=== PATIENT | male | born 1945 | race Caucasian/White ===

== ENCOUNTER → 2017-07-19 | Outpatient (CLI) | payer OTHER ==
[~2017-07-19] MED LIST: AMB5 PO; CLC100 PO; CYCL10TA6 PO; ONDA4TAB65 PO; OXYC-57 PO; POLY335019 PO; PRD10 PO
[2017-07-19 13:15] LABS: BASO % 0.4 %; BASO ABS # 0.02 K/uL (0-0.2); COMPLETE YES; EOS % 6.2 %; HEMATOCRIT 44.1 % (42-52); IG% 0.2 %; LYMPH % 21.5 %; LYMPH ABS # 1.12 K/uL (1.2-3.4); MEAN CELL VOLUME 91.9 fL (80-100); MEAN CORPUSCULAR HEMOGLOBIN 32.1 pg (25-34); MEAN CORPUSCULAR HGB CONC 34.9 g/dl (32-36); MEAN PLATELET VOLUME 10.6 fL (7.4-10.4); MONO % 12.9 %; NEUT % 58.8 %; PLATELET COUNT 249 K/uL (130-400)
[2017-07-19 14:35] LABS: ALT/SGPT 27 U/L (12-78); AST/SGOT 18 U/L (15-37); BLOOD UREA NITROGEN 13 mg/dl (7-18); BUN/CREATININE RATIO 13.7 (10-20); CARBON DIOXIDE 26 mmol/L (21-32); CHLORIDE 107 mmol/L (98-107); CHOLESTEROL 215 mg/dl (0-200); CREATININE 0.98 mg/dl (0.60-1.40); GLUCOSE 97 mg/dl (70-99); POTASSIUM 4.1 mmol/L (3.5-5.1); SODIUM 140 mmol/L (136-145)
[2017-07-19 14:37] LABS: ALB/GLOB RATIO 1.1 (0.9-2); ALKALINE PHOSPHATASE 91 U/L (45-117); CHOLESTEROL/HDL RATIO 4.2; HDL CHOLESTEROL 51 mg/dl; LDL CHOLESTEROL CALCULATED 149 mg/dl; TRIGLYCERIDES 77 mg/dl (0-150); VERY LOW DENSITY LIPOPROT CALC 15 mg/dl
== END | disposition home or self-care (01) ==
LOC: C.LABSPEC 12:34
PROVIDERS: ATTEND Family Medicine
DX: Z00.00 Encounter for general adult medical examination without abnormal findings (principal)

== ENCOUNTER 2025-04-03 10:03 | Observation (INO) ==
--- NOTE | 2025-01-03 15:58 | PAT Medication Instructions ---
Medication Instructions Date of Service January 03, 2025 Home Medications meloxicam 7.5 mg tablet 7.5 mg PO UD PRN Pain ASK your surgeon for instructions meloxicam 7.5 mg tablet 7.5 mg PO UD PRN Pain MORNING OF SURGERY: NOTHING TO EAT OR DRINK AFTER MIDNIGHT Other Notes If you have any questions please call us at [phone] or [phone] or [phone] or [phone]
--- NOTE | 2025-01-09 11:53 | Anesthesiology Consultation ---
Date of Service January 09, 2025 Assessment & Plan (1) Encounter for pre-operative examination: Chart Review Chart Review: Acceptable Risk for Surgery (pending surgeon ordered PCP clearance ) and Patient seen in Pre Admission Testing - Awaiting PCP clearance 01/22/25 (Dr. Gaines) Per PAT appt on 01/09/25, no recent illness/disease exposures, illness related symptoms, or recent illness/disease positive tests. Will leave to surgeon's discretion if preop Covid testing needed Teaching & Discussion Pre-Anesthesia Teaching/Discussion Notes: Instructed NPO after midnight before surgery,except medications with 15 cc of water. Medication instructions provided according to the PAT guidelines. History Surgery Operation Date: 01/31/25 07:45 Proposed Procedures p L4-S1 Decompression and Fusion, Spinal Cord Monitoring - Andrez Mackenzie DO Height/Weight Height: 5 ft 6 in Weight: 81.5 kg Allergies Allergy/AdvReac Type Severity Reaction Status Date / Time No Known Allergies Allergy Verified 01/03/25 15:01 Medications Home Medications Medication Instructions Recorded Confirmed Last Taken meloxicam 7.5 mg tablet 7.5 mg PO UD PRN Pain 01/03/25 01/03/25 Unknown Past Medical History Medical History Borderline high cholesterol History of anxiety History of COVID-19 Covid PNA 2019 hospitalization - symptoms resolved History of depression History of kidney stones History of Lyme disease Treated with IV antibiotic (2014) Spinal stenosis Exercise / Class Metabolic Activity II 4-5 Yardwork/Stairs/Walk up hill (one flight of stairs- no chest pain or SOB ) Past Family History Family History Daughter Family history of reaction to anesthesia n/v and slow to come out of. Other Cancer Heart disease Denies family history of Hearing loss No family history of bleeding disorder Allergies Hypertension Asthma Past Surgical History Surgical History History of colonoscopy History of knee surgery History of lithotripsy Multiple History of neck surgery C-spine surgery x2- no hardware as far as daughter is aware History of sinus surgery History of tonsillectomy Per records, daughter not sure History of urologic surgery Multiple, r/t kidney stones Past Anesthesia History No Hx of Anesthesia Complications (with exception to T&A as child - unknown specifics - "almost lost him", no issues with subsequent anesthesia- possibly related to ether per patient ) and No Family Hx of Anesthesia Complications (with exception to daughter PONV and slow wake (groggy- no reintubation or ICU stay)) History of PONV No Hx of PONV and No Hx of Motion Sickness Social History Smoking Status: Former smoker Do You Dip or Chew Tobacco: Yes (<1 can daily /advised) Smoking End Date: 30+ yr ago Hx Alcohol Use: No alcohol intake frequency: other Alcohol Intake Frequency Comment: infrequent/seasonal. Hx Substance Use: No substance use type: does not use Review of Systems - Coughing x 1-2 days- no issues at PAT appt on 01/09/25 - Hx of snoring- hx of sleep study- results inconclusive/could not complete study Patient denies chest pain, shortness of breath, dyspnea on exertion, reflux, wheezing, palpitations. No hx of seizures, stroke, DC. No hx of blood clots or blood transfusions Physical Exam Vital Signs VITALS BP 157/93 P 54 TEMP 97.7 SP02 98% (Physical Exam completed by Dr Echavarria) Constitutional no acute distress ENMT Mallampati Class: I Two front teeth capped Missing side teeth/molars Neck + limited neck extension Musculoskeletal Spine: no pain with cervical ROM Extremities: extremities normal to inspection Psychiatric Orientation: alert Lab Results Anesthesia Preop Results Results Anesthesia Widget: WBC 7.59 K/ul (4.8-10.8) 01/09/25 Hgb 15.2 g/dl (14.0-18.0) 01/09/25 Hct 44.9 % (42.0-52.0) 01/09/25 Plt 240 K/uL (130-400) 01/09/25 Na 140 mmol/L (136-145) 01/09/25 K 4.4 mmol/L (3.5-5.1) 01/09/25 Cl 108 mmol/L (98-107) H 01/09/25 CO2 26 mmol/L (21-32) 01/09/25 BUN 24 mg/dl (6-23) H 01/09/25 Creat 0.87 mg/dl (0.6-1.4) 01/09/25 Glucose Level 92 mg/dl (70-99(Fasting)) 01/09/25 PT 10.3 Seconds (9.0-12.0) 01/09/25 PTT 28 Seconds (21-31) 01/09/25 INR 0.9 (0.9-1.1) 01/09/25 Urine Color Yellow 01/09/25 Urine Appearance Clear (Clear) 01/09/25 Urine pH 7.5 (4.5-7.5) 01/09/25 Urine Specific [place] 1.015 (1.000-1.030) 01/09/25 Urine Protein Negative (Negative) 01/09/25 Urine Glucose (UA) Negative (Negative) 01/09/25 Urine Ketones Negative (Negative) 01/09/25 Urine Blood Negative (Negative) 01/09/25 Urine Nitrite Negative (Negative) 01/09/25 Urine Bilirubin Negative (Negative) 01/09/25 Urine Urobilinogen Negative (Negative) 01/09/25 Urine Leukocyte Esterase Negative (Negative) 01/09/25 Blood Type A Positive 01/09/25 Antibody Screen NEGATIVE 01/09/25 Testing Electrocardiogram Date: 01/09/25 Findings: + SB @ (54bpm) RBBB When compared to EKG from December 31, 2022- no significant change was found per cardio Chest X-Ray Date: 01/09/25 Findings: + NAD FINDINGS: Heart size and pulmonary vasculature are normal. No effusion or consolidation. Stable mildly hyperexpanded lungs.
[2025-04-03 10:27] LABS: Hematocrit (blood only) 47.1 % (42.0-52.0); Hemoglobin 16.0 g/dl (14.0-18.0); Immature Granulocytes # (auto) 0.01 K/uL (0.01-0.20); Immature Granulocytes % (auto) 0.2 %; Mean Corpuscular Hemoglobin 31.4 pg (25.0-34.0); Mean Corpuscular Volume 92.4 fL (80.0-100.0); Platelet Count 237 K/uL (130-400); RDW Standard Deviation 44.1 fL (36.4-46.3); Red Blood Count 5.10 M/uL (4.70-6.10); White Blood Count 5.45 K/ul (4.8-10.8)
[2025-04-03] MEDS: ACETAMINOPHEN 500 MG TAB PO SCH (10:37)
[2025-04-03] MEDS: CeleBREX 200 MG CAP PO SCH (10:38)
[2025-04-03] MEDS: GABAPENTIN 300 MG CAP PO SCH (10:38)
[2025-04-03] MEDS: LR 60ML/HR IV SCH (10:38)
[2025-04-03 10:45] LABS: Anion Gap 5.0 (3-11); Blood Urea Nitrogen 21.0 mg/dl (6-23); Calcium 9.6 mg/dl (8.6-10.3); Carbon Dioxide 28.0 mmol/L (21-32); Chloride 108.0 mmol/L (98-107); Creatinine Clr Calc Pharmacy 58.6 ml/min; Glucose 112.0 mg/dl (70-99(Fasting)); Potassium 4.4 mmol/L (3.5-5.1); Sodium 141.0 mmol/L (136-145)
[2025-04-03] MEDS ORDERED: PROPOFOL IV EMULSION 10 MG/ML 20 ML VIAL IV ONE ×2 (10:52→13:04)
[2025-04-03] MEDS ORDERED: ROCURONIUM BROMIDE 10 MG/ML 5 ML VIAL IV ONE ×2 (10:52→13:21)
[2025-04-03] MEDS ORDERED: LIDOCAINE 2% 2 ML VIAL/AMP(20MG/ML) INFIL ONE (10:52)
[2025-04-03] MEDS ORDERED: KETAMINE HCL 10MG/ML SYR ONE (10:53)
[2025-04-03 10:59] LABS: INR 0.9 (0.9-1.1); Partial Thromboplastin Time 28 Seconds (21-31); Prothrombin Time 10.3 Seconds (9.0-12.0)
--- NOTE | 2025-04-03 12:19 | History & Physical Bridge Note ---
Date of Service April 03, 2025 History & Physical Bridge Note I have examined the patient, reviewed the History & Physical and in the interval since the performance of the History & Physical I have noted the following changes of clinical significance: no changes noted
--- NOTE | 2025-04-03 12:20 | History & Physical Report ---
Date of Service April 03, 2025 Assessment & Plan (1) Lumbosacral radiculopathy: Plan: L4-S1 decompression and fusion History of Present Illness Chief Complaint: Back and bilateral leg pain Primary Care Provider: Galileo Gaines DO This is a 80-year-old male who presents with chronic persistent back and leg pain after failing course of nonoperative care is here for surgical intervention. Allergies Allergy/AdvReac Type Severity Reaction Status Date / Time No Known Allergies Allergy Verified 03/27/25 08:02 Home Medications Medication Instructions Recorded Confirmed Type meloxicam 7.5 mg tablet 7.5 mg PO UD PRN Pain 01/03/25 04/03/25 History aspirin 81 mg tablet,delayed 81 mg PO QAM 03/27/25 04/03/25 History release omega-3 fatty acids 1,200 mg PO QAM 03/27/25 04/03/25 History Past Med/Surg History Problem List Lumbosacral radiculopathy Positional vertigo of left ear (Acute) Medical History History of postoperative nausea and vomiting age 9 with ether for t&a. History of anesthesia reaction age 9 with t&a surgery "quit breathing" - specific unknown- no issues with subsequent surgeries/anesthesia (possibly related to ether per patient) History of COVID-19 Covid PNA 2019 hospitalization - symptoms resolved History of depression History of anxiety History of kidney stones History of Lyme disease Treated with IV antibiotic (2014) Spinal stenosis Borderline high cholesterol Surgical History History of tonsillectomy and adenoidectomy History of colonoscopy History of sinus surgery History of knee surgery History of neck surgery C-spine surgery x2- no hardware per pt - rom "pretty good" History of urologic surgery Multiple, r/t kidney stones History of lithotripsy Multiple Family History Daughter Family history of reaction to anesthesia n/v and slow to come out of. Other Cancer Heart disease Denies family history of Hearing loss No family history of bleeding disorder Allergies Hypertension Asthma Social History (Updated 07/26/20 @ 11:39 by Evelyn Kenny RN) Smoking Status: Former smoker Tobacco Type: Smokeless Tobacco (Dip or Chew) Smoking End Date: hx cigarettes & occ cigar , quit 30 yr ago; Second Hand Exposure: Yes (whole family at one point smoked); Do You Dip or Chew Tobacco: Yes (chew daily /advised); Hx Alcohol Use: No Hx Substance Use: No Preferred Language: Thai Communication Ability: Effective Communication Ability Comment: phone call with daughter Selene [employer] Collect[employer] Required: No Beliefs That Will Affect Care: None marital status: Current Living Situation: Spouse current occupational status: retired Feels Safe at Home: Yes Assistive Devices: Glasses Physical Exam Physical Exam: Patient is alert and oriented Heart regular rhythm Lungs clear Results & Data Results & Data Vital Signs (Past 12 Hours) Vital Signs Temp Pulse Resp BP Pulse Ox O2 Del Method 04/03/25 10:23 36.9 C 55 L 20 181/89 H 97 Room Air
[2025-04-03] MEDS ORDERED: HYDROmorphone INJ 2 MG/ML SYR/VIAL ONE (12:29)
[2025-04-03] MEDS ORDERED: ONDANSETRON INJ 2 MG/ML 2 ML VIAL IV PRN ×2 (12:35→17:31)
[2025-04-03] MEDS ORDERED: ATROPINE SULFATE 0.1 MG/ML 10ML SYR IV PRN (12:35)
[2025-04-03] MEDS ORDERED: DEXAMETHASONE SOD INJ 4 MG/ML VIAL ONE (13:14)
[2025-04-03] MEDS ORDERED: ONDANSETRON INJ 2 MG/ML 2 ML VIAL ONE (14:14)
[2025-04-03] MEDS: BUPIVACAINE/EPINEPHRINE 0.25% 1:200,000 30 ML VIAL ONE (14:31)
[2025-04-03] MEDS: SURGICEL ABSORB HEMOSTAT 2IN X 14IN TOP ONE (14:33)
[2025-04-03] MEDS: ceFAZolin 330 MG/ML 1 GM VIAL ONE (14:33)
[2025-04-03] MEDS: FLOSEAL HEMOSTATIC MATRIX 10ML TOP ONE (15:06)
--- NOTE | 2025-04-03 15:16 | Operative Report ---
Post Operative Report Pre & Post Diagnosis Operation Date: 04/03/25 11:55 Pre-Op Diagnosis: #1 multilevel lumbosacral spondylosis with radiculopathy #2 lumbar spinal stenosis Post-Op Diagnosis: Same I identified the patient and participated in the time-out.: Yes Procedure Operation Date: 04/03/25 11:55 Actual Procedures #1 lumbar decompression with bilateral medial facetectomies and foraminotomies L3-L4, L4-L5 and L5-S1. #2 posterior spinal fusion L3-S1. #3 placed posterior segmental instrumentation L3-S1 using Varela. #4 interbody fusion L4-L5 L5-S1. #5 placement of Spira 13 x 26 mm at L4-L5 and 11 x 26 mm at L5-S1. #6 placement locally harvested morselized autograft and posterior gutters. #7 placement of Proteus, with Koros in the posterior lateral gutters and os design interbody space. #8 application of versa wrap of the exposed dura. Surgeon Andrez Mackenzie, Regional Maintenance Manager Kristy Rendon Estimated Blood Loss 450 Findings Consistent with Post-Op Diagnosis Specimens None Indications This is a 80-year-old male presents publish diagnosis of failed course of nonoperative care is here for surgical invention. Description of Procedure Patient met with identified informed consent obtained. Patient was then taken to the operative suite underwent intubation placed in a prone position on the Anthony table top of the Tommie frame. All bony prominences well-padded eyes inspected to ensure no external pressure placed upon them. This point the lumbar spine was prepped and draped in normal sterile fashion. Sharp dissection with the assistance of Bovie cautery from down to and exposing the lamina and transverse processes of L3-4 L5 and the sacral ala bilaterally. From caudal to cephalad fashion complete laminectomy of L5 was performed including bilateral medial facetectomies and foraminotomies addressing severe neural compression. This was followed by complete laminectomy of L4 with bilateral medial facetectomies and foraminotomies addressing severe neural compression. I did perform a medial facetectomy bilaterally at L4 3 L4 but found had to remove the entire facet to adequately decompress the lateral recess and canal. In light of the aggressive facetectomies required I did elect to extend the fusion to the L3 level in light of the instability and that would ensue. Pedicle screws were then placed at L3-L4-L5 and S1 levels bilaterally with assistance of fluoroscopy and probe/jesus placed. By way of transfer approach on the right a complete d iscectomy of L5-S1 was performed endplates curetted to subcortical bleeding bone and a 11 x 26 mm spiral cage filled with os design bone graft apposition. Then proceeded to L4-L5 by way the transforaminal portion of right complete discectomy was performed. Endplates guided to subcortical bleeding bone and a 13 x 26 mm spiral cage filled with loss design bone graft tapped in position. The rods then locked in a final position bilaterally. The transverse processes of L3-L4-L5 and the sacral ala burred to subcortically bone. Proteus combined with Koros and local autograft placement posterior gutters. First wrap placed over the exposed dura. 15 round ANTONIO drain inserted. Incision was then closed with 1 Vicryl the fascia 2-0 Vicryl subcutaneously and 4 Monocryl for final skin closure. Steri-Strips sterile dressing placed. Patient waken taken PACU stable condition. Please note Kristy Rendon was present at the entire procedure by the patient positioning complex portion of the surgery and final skin closure. I attest to the content of the Intraoperative Record and any orders documented therein. Any exceptions are noted below.
--- NOTE | 2025-04-03 15:46 | Fluoroscopy Report ---
FL lumbar spine 2-3V CLINICAL HISTORY: L3-S1 DECOMP AND FUSION COMPARISON STUDY: Lumbar spine MRI March 11, 2015. Fluoroscopy time: 25 seconds. Number of fluoroscopic images: 3. Ka,r: 19.37 mGy. FINDINGS: Fluoroscopy was provided during L3-S1 decompression and bilateral pedicle screw fusion. Int erbody spacer placement at the L4-L5 and L5-S1 levels is noted. No unexpected radiopaque foreign bodi es. IMPRESSION: Fluoroscopy provided during L3-S1 decompression and fusion. ACT 112: Negative or not required by law. Electronically signed by: Man Lomeli M.D. 04/03/2025 3:45 PM
[2025-04-03] MEDS: HYDROmorphone INJ 1 MG/ML SYRINGE IV PRN (16:15)
--- NOTE | 2025-04-03 16:34 | Anesthesiology Progress Note ---
Date of Service April 03, 2025 Anesthesia Post Procedure Vital Signs Vital Signs: Temp Pulse Pulse Resp BP Pulse Ox O2 Del Method 04/03/25 16:30 36.3 C L 64 16 119/67 97 Nasal Cannula 04/03/25 16:20 60 12 114/70 96 Nasal Cannula 04/03/25 16:10 61 12 110/68 98 Oxymask 04/03/25 16:00 63 12 108/68 98 Oxymask 04/03/25 15:50 60 12 107/71 94 Oxymask 04/03/25 15:40 73 12 101/65 94 Oxymask 04/03/25 15:32 36.1 C L 78 18 106/59 L 95 Oxymask 04/03/25 10:23 36.9 C 55 L 20 181/89 H 97 Room Air O2 Flow Rate 04/03/25 16:30 2 04/03/25 16:20 2 04/03/25 16:10 4 04/03/25 16:00 6 04/03/25 15:50 6 04/03/25 15:40 6 04/03/25 15:32 6 04/03/25 10:23 Pain Intensity Back: Pain Intensity: 6 Transfer of Care Handoff Completed per policy Notes Mental Status: alert / awake / arousable Patient Amnestic to Procedure: Yes Nausea / Vomiting: adequately controlled Pain: adequately controlled Airway Patency, RR, SpO2: stable & adequate BP & HR: stable & adequate Hydration State: stable & adequate Anesthetic Complications: no major complications apparent and Pt Satisfied with anesthetic care
[2025-04-03] MEDS ORDERED: FAMOTIDINE 20 MG TAB PO PRN (17:31)
[2025-04-03] MEDS ORDERED: ONDANSETRON 4 MG OD TAB PO PRN (17:31)
[2025-04-03] MEDS ORDERED: PROMETHAZINE 12.5 MG/50.5 ML BAG IV PRN (17:31)
[2025-04-03] MEDS ORDERED: DO NOT ADMINISTER PNEUMOCOCCAL VACCINE PRN (17:31)
[2025-04-03] MEDS ORDERED: NALOXONE HCL 0.4 MG/1 ML VIAL/CARP IV PRN (17:31)
[2025-04-03] MEDS ORDERED: diphenhydrAMINE Capsule 25 MG CAP PO PRN (17:31)
[2025-04-03] MEDS ORDERED: MAGNESIUM HYDROXIDE SUSP 30 ML UDC PO PRN (17:31)
[2025-04-03] MEDS ORDERED: HYDROmorphone INJ 0.5 MG/0.5 ML SYR IV PRN (17:31)
[2025-04-03] MEDS ORDERED: HYDROmorphone INJ 1 MG/ML SYRINGE IV PRN (17:31)
[2025-04-03] MEDS ORDERED: SOD PHOSPHATE/SOD BIPHOSPHATE ENEMA 132 ML BTL PR PRN (17:31)
[2025-04-03] MEDS ORDERED: METOCLOPRAMIDE HCL INJ 5 MG/ML 2 ML VIAL IV PRN (17:31)
[2025-04-03] MEDS ORDERED: LORazepam 0.5 MG TAB PO PRN (17:31)
[2025-04-03] MEDS ORDERED: ACETAMINOPHEN 500 MG TAB PO PRN (17:31)
[2025-04-03] MEDS ORDERED: ACETAMINOPHEN 1,000 MG/100 ML VIAL IV PRN (17:31)
[2025-04-03] MEDS ORDERED: ALUMINUM/MAGNESIUM SUSP 30 ML UDC PO PRN (17:31)
[2025-04-03] MEDS ORDERED: DO NOT ADMINISTER FLU VACCINE PRN (17:31)
--- NOTE | 2025-04-03 17:48 | Consultation ---
<Statement entered by Ilya Wayne DO - 04/03/25 18:46> patient seen and examined Encouraged IS use Rest as below Date of Consultation April 03, 2025 Assessment & Plan (1) Lumbosacral radiculopathy: (2) S/P lumbar spinal fusion: Plan 80 year old male with PMH significant for lumbosacral radiculopathy who underwent L4-S1 decompression and fusion on 04/03/[address] Mackenzie. We have been consulted for post operative medical management. Lumbosacral radiculopathy POD#0 L4-S1 decompression and fusion on 04/03/[address] Mackenzie Activity level, pain control, DVT prophylaxis, bowel regimen, wound/drain care per primary team Encourage incentive spirometer Monitor am labs for post operative anemia (preop Hgb 16, EBL 450cc) PT/OT in am DVT Prophylaxis: SCDs/TEDs per primary team Code Status: FULL CODE PCP: Galileo Gaines Thank you for this consultation. We will continue to follow this patient with you. [facility]/03 via the role in [employer] - please don't hesitate to reach out with questions. Patient seen in collaboration with Dr Wayne. Please see addendum. I spent a total of 45 minutes coordinating, documenting and providing care for this patient excluding time spent in the performance of separately billed services or time spent by another provider/QHP. History of Present Illness Requesting Physician: Andrez Mackenzie DO Reason for Consultation: post operative medical management Attending Physician: Andrez Mackenzie DO History of Present Illness 80 year old male with PMH significant for lumbosacral radiculopathy who underwent L4-S1 decompression and fusion on 04/03/[address] Mackenzie. We have been consulted for post operative medical management. Patient reports this is his third back surgery. He was seen in his inpatient room post operatively. Feels a little loopy from anesthesia still. Denies any back pain, numbness/tingling of BLE, dizziness, chest pain, SOB, abdominal pain, N/V. Allergies Allergy/AdvReac Type Severity Reaction Status Date / Time No Known Allergies Allergy Verified 03/27/25 08:02 Home Medications Medication Instructions Recorded Confirmed Type meloxicam 7.5 mg tablet 7.5 mg PO UD PRN Pain 01/03/25 04/03/25 History aspirin 81 mg tablet,delayed 81 mg PO QAM 03/27/25 04/03/25 History release omega-3 fatty acids 1,200 mg PO QAM 03/27/25 04/03/25 History Patient History Medical History (Updated 04/03/25 @ 17:52 by ELISA Rodriguez) Neurological Lyme disease entered 2014 Positional vertigo of left ear History of postoperative nausea and vomiting age 9 with ether for t&a. History of anesthesia reaction age 9 with t&a surgery "quit breathing" - specific unknown- no issues with subsequent surgeries/anesthesia (possibly related to ether per patient) History of COVID-19 Covid PNA 2019 hospitalization - symptoms resolved History of depression History of anxiety History of kidney stones History of Lyme disease Treated with IV antibiotic (2014) Spinal stenosis Borderline high cholesterol Surgical History History of tonsillectomy and adenoidectomy History of colonoscopy History of sinus surgery History of knee surgery History of neck surgery C-spine surgery x2- no hardware per pt - rom "pretty good" History of urologic surgery Multiple, r/t kidney stones History of lithotripsy Multiple Family History Daughter Family history of reaction to anesthesia n/v and slow to come out of. Other Cancer Heart disease Denies family history of Hearing loss No family history of bleeding disorder Allergies Hypertension Asthma Social History (Updated 07/26/20 @ 11:39 by Evelyn Kenny RN) Smoking Status: Former smoker Tobacco Type: Smokeless Tobacco (Dip or Chew) Smoking End Date: hx cigarettes & occ cigar , quit 30 yr ago; Second Hand Exposure: Yes (whole family at one point smoked); Do You Dip or Chew Tobacco: Yes (chew daily /advised); Hx Alcohol Use: No Hx Substance Use: No Preferred Language: [place]ill[place] Communication Ability: Effective Communication Ability Comment: phone call with daughter Selene Bobbin Collector Required: No Beliefs That Will Affect Care: None marital status: Current Living Situation: Spouse current occupational status: retired Feels Safe at Home: Yes Assistive Devices: Glasses Review of Systems Review of Systems: All systems reviewed & are unremarkable except as noted in HPI & below Physical Exam Physical Exam: General/Psych: WD/WN, sitting up in bed, NAD, conversing easily Head: normocephalic, atraumatic Eyes: normal inspection, PERRL, conjunctivae pink ENT: external ear and nose normal, oropharynx normal Neck: normal visual inspection, trachea midline Respiratory: normal respiratory effort, lungs clear to auscultation, no wheeze/rales/rhonchi, no accessory muscle use Cardiovascular: regular rate and rhythm, no murmur/rub/gallop, no JVD Extremities: no cyanosis or clubbing, normal peripheral pulses, no BLE edema, sensation intact BLE Abdomen/GI: normal bowel sounds, soft, nontender, rounded : travis in place Neurologic/MSK: A+Ox3, motor strength 5/5, moves all extremities Skin: no rashes, normal color, warm and dry; island dressing c/d/i, ANTONIO drain with sanguinous output Results & Data Vital Signs (Past 12 Hours) Vital Signs Temp Pulse Pulse Resp BP Pulse Ox O2 Del Method 04/03/25 17:31 36.4 C L 69 17 123/76 92 Room Air 04/03/25 17:00 60 12 128/68 97 Nasal Cannula 04/03/25 16:45 66 12 115/73 95 Nasal Cannula 04/03/25 16:30 36.3 C L 64 16 119/67 97 Nasal Cannula 04/03/25 16:20 60 12 114/70 96 Nasal Cannula 04/03/25 16:10 61 12 110/68 98 Oxymask 04/03/25 16:00 63 12 108/68 98 Oxymask 04/03/25 15:50 60 12 107/71 94 Oxymask 04/03/25 15:40 73 12 101/65 94 Oxymask 04/03/25 15:32 36.1 C L 78 18 106/59 L 95 Oxymask 04/03/25 10:23 36.9 C 55 L 20 181/89 H 97 Room Air O2 Flow Rate 04/03/25 17:31 04/03/25 17:00 2 04/03/25 16:45 2 04/03/25 16:30 2 04/03/25 16:20 2 04/03/25 16:10 4 04/03/25 16:00 6 04/03/25 15:50 6 04/03/25 15:40 6 04/03/25 15:32 6 04/03/25 10:23 Medications Administered Current Inpatient Medications Acetaminophen (Acetaminophen 500 Mg Tab) 1,000 mg PO PREOP BRIANA Stop: 04/03/25 18:00 Last Admin: 04/03/25 10:37 Dose: 1,000 mg Acetaminophen (Acetaminophen 500 Mg Tab) 1,000 mg PO Q8H PRN PRN Reason: MILD Pain (1,2,3) & Pre PT Stop: 05/03/25 17:30 Al Hydrox/Mg Hydrox/Simethicone (Aluminum/Magnesium Susp 30 Ml Udc) 30 ml PO Q6H PRN PRN Reason: Dyspepsia Stop: 05/03/25 17:30 Aspirin (Aspirin 81 Mg Ectab) 81 mg PO QAM BRIANA Stop: 05/04/25 08:59 Atropine Sulfate (Atropine Sulfate 0.1 Mg/Ml 10ml Syr) 0.5 mg IV Q1M PRN PRN Reason: PACU Use-HR<40 &/or Bradycardi Stop: 04/03/25 20:35 Bisacodyl (Bisacodyl 10 Mg Supp) 10 mg RI DAILY PRN PRN Reason: Constipation Stop: 05/03/25 17:30 Celecoxib (Celebrex 200 Mg Cap) 200 mg PO PREOP BRIANA Stop: 04/03/25 18:00 Last Admin: 04/03/25 10:38 Dose: 200 mg Diphenhydramine HCl (Diphenhydramine Capsule 25 Mg Cap) 25 mg PO Q6H PRN PRN Reason: Allergic Rhinitis/Insomnia Stop: 05/03/25 17:30 Ephedrine Sulfate (Ephedrine Sulfate 50 Mg/Ml Amp) 5 mg IV Q5M PRN PRN Reason: PACU Use Only-SBP<90 mmHg Stop: 04/03/25 20:35 Famotidine (Famotidine 20 Mg Tab) 20 mg PO Q12H PRN PRN Reason: Dyspepsia Stop: 05/03/25 17:30 Gabapentin (Gabapentin 300 Mg Cap) 300 mg PO PREOP BRIANA Stop: 04/03/25 18:00 Last Admin: 04/03/25 10:38 Dose: 300 mg Hydromorphone HCl (Hydromorphone Inj 1 Mg/Ml Syringe) 0.25 mg IV Q5M PRN PRN Reason: PACU Use Only-Pain Stop: 04/03/25 20:35 Last Admin: 04/03/25 16:20 Dose: 0.25 mg Hydromorphone HCl (Hydromorphone Inj 0.5 Mg/0.5 Ml Syr) 0.5 mg IV Q3H PRN PRN Reason: MODERATE Pain(4,5,6)/Pre PT Stop: 04/17/25 17:30 Hydromorphone HCl (Hydromorphone Inj 1 Mg/Ml Syringe) 1 mg IV Q3H PRN PRN Reason: SEVERE Pain (7,8,9,10) Stop: 04/17/25 17:30 Hydroxyzine HCl (Hydroxyzine Hcl 25 Mg Tab) 25 mg PO Q8H PRN PRN Reason: Anxiety Stop: 05/03/25 17:30 Lactated Ringer's (Lr) 1,000 mls @ 60 mls/hr IV .[id number] BRIANA Stop: 04/03/25 22:39 Last Infusion: 04/03/25 12:40 Dose: Infused Cefazolin Sodium (Ancef 2000mg) 2,000 mg in 15 mls @ 3.75 mls/min IV PREOP BRIANA; Protocol Stop: 04/03/25 18:00 Last Admin: 04/03/25 12:42 Dose: 3.75 mls/min Lactated Ringer's (Lr) 1,000 mls @ 75 mls/hr IV .[id number] BRIANA Stop: 04/04/25 08:00 Last Admin: 04/03/25 17:49 Dose: 75 mls/hr Acetaminophen (Ofirmev) 1,000 mg in 100 mls @ 400 mls/hr IV Q8H PRN PRN Reason: MILD Pain (1,2,3) & Pre PT Stop: 04/04/25 17:31 Cefazolin Sodium (Ancef 2000mg) 2,000 mg in 15 mls @ 3.75 mls/min IV Q8H BRIANA; Protocol Stop: 04/04/25 05:33 Promethazine HCl (Phenergan) 12.5 mg in 50.5 mls @ 202 mls/hr IV Q6H PRN PRN Reason: Nausea And Vomiting Stop: 05/03/25 17:30 Dexamethasone 6 mg/ Syringe 1.5 mls @ 1 mls/min IV DAILY BRIANA Stop: 04/06/25 09:02 Influenza Virus Vaccine Quadrival (Do Not Administer Flu Vaccine) 1 each N/A PRN PRN PRN Reason: Notification Stop: 05/03/25 17:30 Lorazepam (Lorazepam 0.5 Mg Tab) 0.5 mg PO Q8H PRN PRN Reason: Sedation/Anxiety Stop: 05/03/25 17:30 Lorazepam (Lorazepam 2 Mg/1 Ml Vial) 0.5 mg IV Q8H PRN PRN Reason: Sedation/Anxiety Stop: 05/03/25 17:30 Magnesium Hydroxide (Magnesium Hydroxide Susp 30 Ml Udc) 30 ml PO Q24H PRN PRN Reason: Constipation Stop: 05/03/25 17:30 Metoclopramide HCl (Metoclopramide Hcl Inj 5 Mg/Ml 2 Ml Vial) 10 mg IV Q6H PRN PRN Reason: Nausea &/or Vomiting Stop: 05/03/25 17:30 Naloxone HCl (Naloxone Hcl 0.4 Mg/1 Ml Vial/Carp) 0.1 mg IV Q5M PRN PRN Reason: Oversedation/Resp depression Stop: 05/03/25 17:30 Ondansetron HCl (Ondansetron Inj 2 Mg/Ml 2 Ml Vial) 4 mg IV ONCE PRN PRN Reason: PACU Use Only-Nausea/Vomiting Stop: 04/03/25 20:35 Ondansetron HCl (Ondansetron Inj 2 Mg/Ml 2 Ml Vial) 4 mg IV Q6H PRN PRN Reason: Nausea &/or Vomiting Stop: 05/03/25 17:30 Ondansetron HCl (Ondansetron 4 Mg Od Tab) 4 mg PO Q6H PRN PRN Reason: Nausea Stop: 05/03/25 17:30 Oxycodone HCl (Oxycodone Hcl Ir 5 Mg Tab (Immediate Release)) 5 - 10 mg PO Q4H PRN PRN Reason: MOD/SEV Pain & Pre PT Stop: 04/17/25 17:30 Pneumococcal Polyvalent Vaccine (Do Not Administer Pneumococcal Vaccine) 1 each N/A PRN PRN PRN Reason: Notification Stop: 05/03/25 17:30 Polyethylene Glycol (Polyethylene (Miralax) 17 Gm Pack) 17 gm PO Q6 BRIANA Stop: 05/04/25 05:59 Senna/Docusate Sodium (Docusate Sodium/Senna 50/8.6mg Tab) 2 tab PO HS BRIANA Stop: 05/03/25 20:59 Sodium Biphosphate/Sodium Phosphate (Sod Phosphate/Sod Biphosphate Enema 132 Ml Btl) 132 ml RI ONE PRN PRN Reason: Constipation Stop: 05/03/25 17:30 Tramadol HCl (Tramadol Hcl 50 Mg Tablet) 50 - 100 mg PO Q4H PRN PRN Reason: MOD/SEV Pain & Pre PT Stop: 05/03/25 17:30
[2025-04-03] MEDS: LACTATED RINGER'S 1,000 ML IV SCH (17:49)
[2025-04-03] MEDS: DOCUSATE SODIUM/SENNA 50/8.6MG TAB PO SCH (20:14)
[2025-04-04] MEDS: POLYETHYLENE (MIRALAX) 17 GM PACK PO SCH (05:49)
[2025-04-04 06:51] LABS: Hematocrit (blood only) 34.1 % (42.0-52.0); Hemoglobin 11.8 g/dl (14.0-18.0); Mean Corpuscular Hemoglobin 31.8 pg (25.0-34.0); Mean Corpuscular Volume 91.9 fL (80.0-100.0); Platelet Count 215 K/uL (130-400); RDW Standard Deviation 44.1 fL (36.4-46.3); Red Blood Count 3.71 M/uL (4.70-6.10); White Blood Count 14.72 K/ul (4.8-10.8)
[2025-04-04 07:11] LABS: Immature Granulocytes # (auto) 0.06 K/uL (0.01-0.20); Immature Granulocytes % (auto) 0.4 %
[2025-04-04] MEDS: dexAMETHasone 6 MG in SYRINGE 0 ML IV SCH (07:31)
[2025-04-04 07:50] LABS: Anion Gap 9.0 (3-11); Blood Urea Nitrogen 22.0 mg/dl (6-23); Calcium 8.5 mg/dl (8.6-10.3); Carbon Dioxide 24.0 mmol/L (21-32); Chloride 104.0 mmol/L (98-107); Creatinine Clr Calc Pharmacy 61.5 ml/min; Glucose 156.0 mg/dl (70-99(Fasting)); Potassium 4.8 mmol/L (3.5-5.1); Sodium 137.0 mmol/L (136-145)
[2025-04-04] MEDS: CHOLECALCIFEROL 125 MCG (5,000 UNITS) TAB PO SCH (08:15)
[2025-04-04] MEDS: MULTIVITAMIN TAB PO SCH (08:15)
[2025-04-04] MEDS ORDERED: ASPIRIN 81 MG ECTAB PO SCH (09:00)
--- NOTE | 2025-04-04 10:55 | Orthopedic Progress Note ---
Date of Service April 04, 2025 Assessment & Plan (1) Lumbosacral radiculopathy: Plan: At this time we will continue physical therapy monitor ANTONIO operatively discharge over the next few days. Admission and Anticipated Discharge Date Admission Date: April 03, 2025 Subjective Patient is back pain is controlled. Leg pain improved. He is tolerating therapy. Physical Exam Physical Exam: Patient is up and ambulating about the room. Discussed with the testing. Peers comfortable. Results & Data Vital Signs (Past 12 Hours) Vital Signs Temp Pulse Pulse Resp BP Pulse Ox O2 Del Method 04/04/25 07:40 36.2 C L 53 L 17 108/62 95 Room Air 04/04/25 03:29 36.3 C L 70 18 104/62 97 Room Air
--- NOTE | 2025-04-04 11:17 | Hospitalist Progress Note ---
Date of Service April 04, 2025 Assessment & Plan (1) Lumbosacral radiculopathy: (2) S/P lumbar spinal fusion: Plan 80 year old male with PMH significant for lumbosacral radiculopathy who underwent L4-S1 decompression and fusion on 04/03/[address] Mackenzie. We have been consulted for post operative medical management. Lumbosacral radiculopathy -POD#1 L4-S1 decompression and fusion on 04/03/[address] Mackenzie -Activity level, pain control, DVT prophylaxis, bowel regimen, wound/drain care per primary team -Encourage incentive spirometer -Monitor am labs for post operative anemia -elevated leukocytosis and Hgb drop expected post operatively, will trend -PT/OT I spent a total of 35 minutes in direct patient care, including [id number] time with the patient and/or family, reviewing medical records, ordering and reviewing diagnostic tests, and coordinating care with other healthcare providers. This time includes: history taking, physical examination, medical decision making, counseling, ECG interpretation, imaging interpretation, lab interpretation, orders, and education, excluding time spent in the performance of separately billed services. Admission and Anticipated Discharge Date Admission Date: April 03, 2025 Subjective Patient seen and examined at bedside. Patient doing ok today, standing up and tolerating pain well. Review of Systems Review of Systems: CONSTITUTIONAL: Patient denies fevers, chills, sweats and weight changes. EYES: Patient denies any visual symptoms. EARS, NOSE, AND THROAT: No difficulties with hearing. No symptoms of rhinitis or sore throat. CARDIOVASCULAR: Patient denies chest pains, palpitations, orthopnea and paroxysmal nocturnal dyspnea. RESPIRATORY: No dyspnea on exertion, no wheezing or cough. GI: No nausea, vomiting, diarrhea, constipation, abdominal pain, hematochezia or melena. : No urinary hesitancy or dribbling. No nocturia or urinary frequency. No abnormal urethral discharge. MUSCULOSKELETAL: back pain NEUROLOGIC: No chronic headaches, no seizures. Patient denies numbness, tingling or weakness. PSYCHIATRIC: Patient denies problems with mood disturbance. No problems with anxiety. ENDOCRINE: No excessive urination or excessive thirst. DERMATOLOGIC: Patient denies any rashes or skin changes. Physical Exam Physical Exam: Gen: A&O 3 NAD HEENT: NCAT, EOMI, not icteric. External ears normal. No rhinorrhea. Moist mucous membranes. Neck: Supple, full range of motion, no observable masses, No meningeal sign. Lungs: No Respiratory distress. CV: RRR, no edema. Abdomen: Soft, nondistended, No rebound tenderness. MSK: No joint swelling, no redness. ANTONIO drain in place Skin: No rashes, petechiae, lesions. Normal color per patient. Neuro: Normal Gait, Grossly intact. Psych: Appropriate for situation. Results & Data Results & Data Vital Signs (Past 12 Hours) Vital Signs Temp Pulse Pulse Resp BP Pulse Ox O2 Del Method 04/04/25 11:08 36.5 C 57 L 18 120/66 95 Room Air 04/04/25 07:40 36.2 C L 53 L 17 108/62 95 Room Air 04/04/25 03:29 36.3 C L 70 18 104/62 97 Room Air Laboratory Results -personally reviewed, uptrending leukocytosis expected post op, Hgb drop expected post op, creatinine around baseline Medications Administered Dexamethasone 6 mg/ Syringe 1.5 mls @ 1 mls/min IV DAILY BRIANA Stop: 04/06/25 09:02 Last Admin: 04/04/25 07:31 Dose: 1 mls/min Documented By: CARMINE Multivitamins (Multivitamin Tab) 1 tab PO QA BRIANA Stop: 05/04/25 08:59 Last Admin: 04/04/25 08:15 Dose: 1 tab Documented By: CARMINE Oxycodone HCl (Oxycodone Hcl Ir 5 Mg Tab (Immediate Release)) 5 - 10 mg PO Q4H PRN PRN Reason: MOD/SEV Pain & Pre PT Stop: 04/17/25 17:30 Last Admin: 04/04/25 08:15 Dose: 5 mg Documented By: CARMINE Polyethylene Glycol (Polyethylene (Miralax) 17 Gm Pack) 17 gm PO Q6 BRIANA Stop: 05/04/25 05:59 Last Admin: 04/04/25 05:49 Dose: 17 gm Documented By: JACQUIE Senna/Docusate Sodium (Docusate Sodium/Senna 50/8.6mg Tab) 2 tab PO HS BRIANA Stop: 05/03/25 20:59 Last Admin: 04/03/25 20:14 Dose: 2 tab Documented By: JACQUIE Vitamin D (Cholecalciferol 125 Mcg (5,000 Units) Tab) 125 mcg PO DAILY BRIANA Stop: 05/04/25 08:59 Last Admin: 04/04/25 08:15 Dose: 125 mcg Documented By: CARMINE
[2025-04-05 06:43] LABS: Hematocrit (blood only) 33.1 % (42.0-52.0); Hemoglobin 11.0 g/dl (14.0-18.0); Mean Corpuscular Hemoglobin 31.2 pg (25.0-34.0); Mean Corpuscular Volume 93.8 fL (80.0-100.0); Platelet Count 196 K/uL (130-400); RDW Standard Deviation 45.1 fL (36.4-46.3); Red Blood Count 3.53 M/uL (4.70-6.10); White Blood Count 14.73 K/ul (4.8-10.8)
--- NOTE | 2025-04-05 10:23 | Discharge Summary ---
Date of Service April 05, 2025 Admission HPI Per Admitting Provider This is a 80-year-old male who presents with chronic persistent back and leg pain after failing course of nonoperative care is here for surgical intervention. Principal Diagnosis Multilevel lumbosacral spondylosis with radiculopathy Discharge Data Allergies Allergy/AdvReac Type Severity Reaction Status Date / Time No Known Allergies Allergy Verified 03/27/25 08:02 Consultations 04/03/25 17:31 Consult Hospitalist Routine Procedures Performed Operation Date: 04/03/25 11:55 Actual Procedures p L4-S1 Decompression and Fusion - Andrez Mackenzie DO Ordered Studies 04/03/25 11:55 FL lumbar spine 2-3V Routine Hospital Course (1) Lumbosacral radiculopathy: Patient 1 lumbar decompression fusion 12,000 orthopedic for postoperative. Possibly progressed appropriately. Pain controlled. Excellent strength testing. Subsequently discharged home. Discharge orders instructions found in chart for further review. Total Time Total Time Spent Total Time Spent (In Minutes): 20 minutes Discharge Plan Discharge Items Patient Disposition: Home - Self-Care Reason For Visit: Neurogenic Claudication, Degenerative Lumbar Spina Discharge Diagnosis: Lumbar spondylosis with radiculopathy Activity: As commented below Non-emergency contact: Primary Care Provider Call non-emergency contact if: you have any medication questions Follow-up/Referrals: Galileo Gaines DO [Primary Care Provider] - Diet: Regular Addtl Attending Provider Instructions: ACTIVITY RECOMMENDATIONS: SELF CARE INSTRUCTIONS AFTER THORACIC/LUMBAR FUSIONS 1. You may walk to your tolerance. It is good exercise for your legs and back. Expect some back and intermittent leg aches and pains. 2. You may perform "counter-top" level activities (make a sandwich, florecita with a project, etc.). 3. No bending or lifting of more than 10 pounds or back twisting of any nature (roll like a log when turning in bed). 4. You may ride in a car for 20-30 minutes at a time. No driving until after your first visit with your doctor. 5. Frequent changes of position and restricting sitting to 30 minutes at a time will help limit the amount of back spasms and stiffness you may experience. 6. You may discontinue the use of ambulatory aids (cane, crutches, etc.) once your strength and confidence allow. 7. You may fire apparatus engineer the shower and let water strike your incision when you arrive home at least once daily. Do not take a tub bath, sit in a hot tub or go into a swimming pool until after your first recheck in the office. 8. You may resume previous diet. SPECIAL CARE INSTRUCTIONS: VERY IMPORTANT TO READ AND REVIEW A. Your surgical incision has been closed with a cosmetic suture under the skin that will dissolve in about 6 weeks. In 14 days, you can use a pair of clean scissors and cut the suture that is left outside of the skin at the ends of your incision. 1. The small skin tapes can be removed 7 days after surgery if they have not fallen off by that point. 2. You may keep the wound open to air as much as possible to promote healing after post-op day number 5 unless told otherwise by your doctor. 3. If you think the wound looks like it is becoming infected (redness or worsening drainage) and/or you are experiencing fever, chill or worsening back pain and muscle spasms, contact the office so that we may evaluate you as soon as possible. B. Complications are uncommon, but please contact us if you have any signs or symptoms of: 1. wound infection (fever higher than 102.5 degrees F, redness, separation of wound, drainage, or increasing pain from the incision) 2. blood clots in legs (pain, swelling, redness and warmth in legs) 3. urinary tract infection (fever higher than 102.5 degrees F, burning upon urination or increased frequency of urination) 4. nerve problems (inability to walk on your toes or heels, numbness, loss of bowel or bladder control) 5. any other symptoms that concern you C. Please call the office at if you have any concerns or questions about your operation or recovery. D. No smoking! Smoking drastically decreases the chance of a solid fusion. E. Do not take any anti-inflammatory medications (Indocin, Advil, Motrin, Aspirin, Naprosyn, etc.) as these may inhibit the chance of a solid fusion. Tylenol is okay to take for pain. MANAGING PAIN AFTER SPINAL SURGERY 1. Narcotic medication is intended for short-term use and will be provided for surgical pain. Surgical pain usually lasts for a period of 4-6 weeks. Narcotic medication includes Percocet, Vicodin, Darvocet, Tylenol #3 or Lortab. 2. Longer-term pain is more appropriately treated with non-narcotic medication such as Tylenol ES. 3. Muscle spasm is not appropriately treated with narcotics. Muscle relaxers such as Soma, Flexeril or Skelaxin can be used along with Tylenol ES. 4. Remember that we all live with some "aches and pains". This is not unusual or uncommon after an injury or as we get older. a. Back pain is expected and may include muscle spasms for 4 to 6 weeks after surgery. The pain should gradually improve. If the pain worsens for no apparent reason, please contact the office. b. Intermittent leg pain may also be experienced and should not be concerned about unless it worsens for no apparent reason. If so, please contact the office. 5. We will provide appropriate medication within the normal guidelines of their prescribed use. We will also be very cautious and aware of potential abuse and extended duration of patients' medication needs. a. Pain medications are for your comfort and to assist with sleep and rest so that the tissue can heal. They are not provided in order to return to normal activity and should not be used through the day. To do so or worsening pain at night can result from ongoing tissue damage and development of tolerance to the prescribed medicine. 6. Please allow 2-3 days to process refills. Prescriptions will not be mailed but must be picked up at the office. FOLLOW UP VISIT: Keep your scheduled follow-up appointment. Any questions, please call the office at . Pending Studies at Discharge: No Stand-Alone Forms: [facility], Smoking Cessation Medications and DC Order Prescriptions: New tramadol 50 mg tablet 50 mg PO Q6H PRN (Reason: pain, moderate) Qty: 30 0RF oxycodone 5 mg tablet 5 mg PO Q6H PRN (Reason: pain) Qty: 30 0RF Rx Instructions: Oxycodone for severe pain tramadol for moderate pain Continued meloxicam 7.5 mg Tablet 7.5 mg PO UD PRN (Reason: Pain) Fish Oil Capsule 1,200 mg PO QAM Patient Comments: 1200 mg multivitamin Tablet 1 tab PO DAILY cholecalciferol (vitamin D3) 125 mcg (5,000 unit) Capsule 125 mcg PO DAILY Discharge Orders: Discharge Order (Routine); Ordered 08/28/25 Ordered By: Andrez Mackenzie Admission Data Admit Date/Time: 04/03/25 15:18 Attending Provider: Andrez Mackenzie Admit Provider: Andrez Mackenzie Primary Care Provider: Galileo Gaines Other Providers: [facility]; Ilya Wayne
[2025-04-05 15:04] LABS: Anion Gap 9.0 (3-11); Calcium 8.9 mg/dl (8.6-10.3); Carbon Dioxide 26.0 mmol/L (21-32); Chloride 103.0 mmol/L (98-107); Potassium 4.5 mmol/L (3.5-5.1); Sodium 138.0 mmol/L (136-145)
[2025-04-05 15:15] LABS: Blood Urea Nitrogen 26.0 mg/dl (6-23); Creatinine Clr Calc Pharmacy 68.4 ml/min; Glucose 129.0 mg/dl (70-99(Fasting))
[2025-04-05 15:58] VITALS: RESP 16; TEMP 97.7; O2SAT 95
--- NOTE | 2025-04-05 16:24 | Hospitalist Progress Note ---
Date of Service April 05, 2025 Assessment & Plan (1) Lumbosacral radiculopathy: (2) S/P lumbar spinal fusion: Plan 80 year old male with PMH significant for lumbosacral radiculopathy who underwent L4-S1 decompression and fusion on 04/03/[address] Mackenzie. We have been consulted for post operative medical management. Lumbosacral radiculopathy -POD#1 L4-S1 decompression and fusion on 04/03/[address] Mackenzie -Activity level, pain control, DVT prophylaxis, bowel regimen, wound/drain care per primary team -Encourage incentive spirometer -patient medically stable for discharge at this time I spent a total of 35 minutes in direct patient care, including [id number] time with the patient and/or family, reviewing medical records, ordering and reviewing diagnostic tests, and coordinating care with other healthcare providers. This time includes: history taking, physical examination, medical decision making, counseling, ECG interpretation, imaging interpretation, lab interpretation, orders, and education, excluding time spent in the performance of separately billed services. Admission and Anticipated Discharge Date Admission Date: April 03, 2025 Subjective Patient seen and examined at bedside. Doing ok today. Feels ready to go home. Trace pain in back treated adequately with pain medications. Review of Systems Review of Systems: CONSTITUTIONAL: Patient denies fevers, chills, sweats and weight changes. EYES: Patient denies any visual symptoms. EARS, NOSE, AND THROAT: No difficulties with hearing. No symptoms of rhinitis or sore throat. CARDIOVASCULAR: Patient denies chest pains, palpitations, orthopnea and paroxysmal nocturnal dyspnea. RESPIRATORY: No dyspnea on exertion, no wheezing or cough. GI: No nausea, vomiting, diarrhea, constipation, abdominal pain, hematochezia or melena. : No urinary hesitancy or dribbling. No nocturia or urinary frequency. No abnormal urethral discharge. MUSCULOSKELETAL: back pain NEUROLOGIC: No chronic headaches, no seizures. Patient denies numbness, tingling or weakness. PSYCHIATRIC: Patient denies problems with mood disturbance. No problems with anxiety. ENDOCRINE: No excessive urination or excessive thirst. DERMATOLOGIC: Patient denies any rashes or skin changes. Physical Exam Physical Exam: Gen: A&O 3 NAD HEENT: NCAT, EOMI, not icteric. External ears normal. No rhinorrhea. Moist mucous membranes. Neck: Supple, full range of motion, no observable masses, No meningeal sign. Lungs: No Respiratory distress. CV: RRR, no edema. Abdomen: Soft, nondistended, No rebound tenderness. MSK: No joint swelling, no redness. ANOTNIO drain in place Skin: No rashes, petechiae, lesions. Normal color per patient. Neuro: Normal Gait, Grossly intact. Psych: Appropriate for situation. Results & Data Results & Data Vital Signs (Past 12 Hours) Vital Signs Temp Pulse Resp BP Pulse Ox O2 Del Method 04/05/25 15:57 36.5 C 62 16 141/71 H 95 Room Air 04/05/25 07:32 36.3 C L 62 18 120/68 99 Room Air Laboratory Results -personally reviewed, leukocytosis plateaued, Hgb 11 and stabilizing post procedure, creatinine at baseline Medications Administered Dexamethasone 6 mg/ Syringe 1.5 mls @ 1 mls/min IV DAILY BRIANA Stop: 04/06/25 09:02 Last Admin: 04/05/25 09:09 Dose: 1 mls/min Documented By: Admin: 04/04/25 07:31 Dose: 1 mls/min Documented By: CARMINE Cefazolin Sodium (Ancef 2000mg) 2,000 mg in 15 mls @ 3.75 mls/min IV Q8H BRIANA Stop: 04/12/25 06:14 Last Admin: 04/05/25 14:39 Dose: Not Given Documented By: Admin: 04/05/25 06:22 Dose: 3.75 mls/min Documented By: augusto Multivitamins (Multivitamin Tab) 1 tab PO QAM BRIANA Stop: 05/04/25 08:59 Last Admin: 04/05/25 09:09 Dose: 1 tab Documented By: Admin: 04/04/25 08:15 Dose: 1 tab Documented By: CARMINE Oxycodone HCl (Oxycodone Hcl Ir 5 Mg Tab (Immediate Release)) 5 - 10 mg PO Q4H PRN PRN Reason: MOD/SEV Pain & Pre PT Stop: 04/17/25 17:30 Last Admin: 04/04/25 20:23 Dose: 10 mg Documented By: augusto Admin: 04/04/25 08:15 Dose: 5 mg Documented By: CARMINE Polyethylene Glycol (Polyethylene (Miralax) 17 Gm Pack) 17 gm PO Q6 BRIANA Stop: 05/04/25 05:59 Last Admin: 04/05/25 12:45 Dose: Not Given Documented By: Admin: 04/05/25 06:01 Dose: 17 gm Documented By: augusto Admin: 04/04/25 23:39 Dose: Not Given Documented By: augusto Admin: 04/04/25 18:34 Dose: Not Given Documented By: Admin: 04/04/25 12:26 Dose: Not Given Documented By: Admin: 04/04/25 05:49 Dose: 17 gm Documented By: JACQUIE Senna/Docusate Sodium (Docusate Sodium/Senna 50/8.6mg Tab) 2 tab PO HS BRIANA Stop: 05/03/25 20:59 Last Admin: 04/04/25 20:25 Dose: 2 tab Documented By: augusto Admin: 04/03/25 20:14 Dose: 2 tab Documented By: JACQUIE Vitamin D (Cholecalciferol 125 Mcg (5,000 Units) Tab) 125 mcg PO DAILY BRIANA Stop: 05/04/25 08:59 Last Admin: 04/05/25 09:09 Dose: 125 mcg Documented By: Admin: 04/04/25 08:15 Dose: 125 mcg Documented By: CARMIEN
[2025-04-05 16:49] VITALS: BP 124/70; PULSE 60
== END 2025-04-05 18:11 | disposition home or self-care (01) | DRG 427 ==
LOC: ASU 10:03 → INTOOBSV 15:18 → 3E 15:18